=== PATIENT | male | born 2000 | race African-American/Black ===

== ENCOUNTER 2025-01-16 22:39 | Emergency (ER) | payer MEDICAID ==
[~2025-01-16] VITALS: Ht 167.6 cm; Wt 55.0 kg
[2025-01-16 22:53] VITALS: O2SAT 96
[2025-01-16 23:22] VITALS: BP 110/64; PULSE 85; RESP 16; TEMP 36.9; O2SAT 100
[2025-01-16] MEDS ORDERED: AM250 MT (23:52)
== END 2025-01-17 00:05 | disposition home or self-care (01) ==
LOC: ER 22:39
DX: H66.92 Otitis media, unspecified, left ear (principal); Z79.899 Other long term (current) drug therapy
CPT/HCPCS: 99283

== ENCOUNTER 2025-02-10 10:20 | Emergency (ER) | payer MEDICAID ==
[~2025-02-10] VITALS: Ht 167.6 cm; Wt 61.0 kg
[~2025-02-10 10:20] MED LIST: AM250 MT
[2025-02-10 10:28] VITALS: BP 115/74; TEMP 36.6; O2SAT 100
[2025-02-10 10:53] VITALS: PULSE 117; RESP 18; O2SAT 100
[2025-02-10] MEDS ORDERED: KETO15CR2 TP (11:02)
[2025-02-10] MEDS ORDERED: DIPH25CA83 MT (11:02)
== END 2025-02-10 11:34 | disposition home or self-care (01) ==
LOC: ER 10:20
DX: R21 Rash and other nonspecific skin eruption (principal)
CPT/HCPCS: 99282